=== PATIENT | male | born 1990 | race Caucasian/White ===

== ENCOUNTER 2022-01-13 00:53 | Emergency (ER) | payer OTHER ==
[2022-01-13 03:56] LABS: Amphetamine Screen,Urine Detected (NotDetected); Barbiturate Screen,Urine Not Detected (NotDetected); Benzodiazepines Screen,Urine Not Detected (NotDetected); Cocaine Screen,Urine Not Detected (NotDetected); Methadone Screen, Urine Not Detected (NotDetected); Opiate Screen,Urine Not Detected (NotDetected); Oxycodone Screen, Urine Not Detected (NotDetected); Phencyclidine Screen,Urine Not Detected (NotDetected); Tricyclic Antidepressant,Urine Not Detected (NotDetected); Urn Cannabinoid Scrn Not Detected (NotDetected)
[2022-01-13] MEDS ORDERED: LORazepam 1 MG TAB PO STA (05:27)
[2022-01-13] MEDS ORDERED: haloperidoL 5 MG TAB PO STA (05:27)
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
[2022-01-13 11:02] VITALS: BP 121/67; PULSE 78; RESP 18; TEMP 97.7
== END 2022-01-13 11:09 | disposition home or self-care (01) ==
LOC: EC 00:53
DX: F15.951 Other stimulant use, unspecified with stimulant-induced psychotic disorder with hallucinations (principal); I10 Essential (primary) hypertension; I25.10 Atherosclerotic heart disease of native coronary artery without angina pectoris; F17.200 Nicotine dependence, unspecified, uncomplicated; Z79.899 Other long term (current) drug therapy
CPT/HCPCS: 80306; 82075; 99284

== ENCOUNTER 2022-01-16 08:35 | Emergency (ER) | payer OTHER ==
[2022-01-16 08:59] VITALS: RESP 16
[2022-01-16] MEDS ORDERED: BACITRACIN OINT 1 EACH PACKET TOPICAL ONE (09:07)
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
[2022-01-16 13:46] LABS: Basophils % (A) 0 %; Eosinophils # (A) 0.1 k/uL (0-0.7); Eosinophils % (A) 1 %; HCT 46.2 % (39.0-53.0); HGB 15.7 gm/dL (13.0-17.5); Lymphocytes % (A) 19 %; MCH 31.1 pg (25.0-35.0); MCHC 33.9 g/dL (31.0-37.0); MCV 91.8 fL (80.0-100.0); Mean Platelet Volume 7.8; Monocytes # (A) 0.6 k/uL (0-1.0); Monocytes % (A) 5 %; Neutrophils # (A) 7.4 k/uL (1.3-7.7); Neutrophils % (A) 71 %; Platelet Count 328 k/uL (150-450); RBC 5.03 m/uL (4.30-5.90); RDW 13.1 % (11.5-15.5); WBC 10.4 k/uL (3.8-10.6)
[2022-01-16 14:01] LABS: ALT 26 U/L (4-49); AST 24 U/L (17-59); African American GFR (CKD) >90 (>60 ml/min/1.73 sqM); Albumin 5.1 g/dL (3.5-5.0); Alkaline Phosphatase 57 U/L (38-126); Anion Gap 9 mmol/L; Blood Urea Nitrogen 13 mg/dL (9-20); Carbon Dioxide 27 mmol/L (22-30); Chloride 104 mmol/L (98-107); Glucose 91 mg/dL (74-99); Non-African American GFR(CKD) >90 (>60 ml/min/1.73 sqM); Potassium 3.8 mmol/L (3.5-5.1); Sodium 140 mmol/L (137-145); Total Bilirubin 0.5 mg/dL (0.2-1.3); Total Protein 7.7 g/dL (6.3-8.2)
[2022-01-16] MEDS ORDERED: LORazepam 2 MG/ML INJ IM STA (14:19)
[2022-01-16 16:43] LABS: Appearance,Urine Clear (Clear); Bilirubin,Urine Negative (Negative); Blood,Urine Negative (Negative); Color,Urine Light Yellow; Glucose,Urine (UA) Negative (Negative); Ketones,Urine Negative (Negative); Leukocyte Esterase,Urine Negative (Negative); Nitrite,Urine Negative (Negative); PH, Urine 6.5 (5.0-8.0); Protein,Urine Negative (Negative); Specific Gravity,Urine 1.011 (1.001-1.035); Urobilinogen,Urine <2.0 mg/dL (<2.0)
[2022-01-16 17:04] LABS: Amphetamine Screen,Urine Detected (NotDetected); Barbiturate Screen,Urine Not Detected (NotDetected); Benzodiazepines Screen,Urine Not Detected (NotDetected); Cocaine Screen,Urine Not Detected (NotDetected); Methadone Screen, Urine Not Detected (NotDetected); Opiate Screen,Urine Not Detected (NotDetected); Oxycodone Screen, Urine Not Detected (NotDetected); Phencyclidine Screen,Urine Not Detected (NotDetected); Tricyclic Antidepressant,Urine Not Detected (NotDetected); Urn Cannabinoid Scrn Not Detected (NotDetected)
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
[2022-01-16 23:03] VITALS: BP 143/87; PULSE 82; TEMP 98.9
== END 2022-01-16 22:10 | disposition home or self-care (01) ==
LOC: EC 08:35
DX: F15.959 Other stimulant use, unspecified with stimulant-induced psychotic disorder, unspecified (principal); T20.17XA Burn of first degree of neck, initial encounter; Z20.822 Contact with and (suspected) exposure to COVID-19; I10 Essential (primary) hypertension; I25.10 Atherosclerotic heart disease of native coronary artery without angina pectoris; F41.9 Anxiety disorder, unspecified; F17.200 Nicotine dependence, unspecified, uncomplicated; X08.8XXA Exposure to other specified smoke, fire and flames, initial encounter
CPT/HCPCS: 82075; 36415; 80053; 85025; 81003; 80306; 87635; 99285; 96372; J2060

== ENCOUNTER 2022-01-17 11:34 | Inpatient (IN) | payer MEDICAID, OTHER ==
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
[2022-01-17 14:41] LABS: Amphetamine Screen,Urine Detected (NotDetected); Barbiturate Screen,Urine Not Detected (NotDetected); Benzodiazepines Screen,Urine Not Detected (NotDetected); Cocaine Screen,Urine Not Detected (NotDetected); Methadone Screen, Urine Not Detected (NotDetected); Opiate Screen,Urine Not Detected (NotDetected); Oxycodone Screen, Urine Not Detected (NotDetected); Phencyclidine Screen,Urine Not Detected (NotDetected); Tricyclic Antidepressant,Urine Not Detected (NotDetected); Urn Cannabinoid Scrn Not Detected (NotDetected)
[2022-01-17] MEDS ORDERED: MAGNESIUM HYDROXIDE 2,400 MG/10 ML CUP PO PRN (18:34)
[2022-01-17] MEDS ORDERED: LORazepam 1 MG TAB PO PRN (18:34)
[2022-01-17] MEDS ORDERED: MAG HYDROX/AL HYDROX/SIMETH 30 ML CUP PO PRN (18:34)
[2022-01-17] MEDS ORDERED: LORazepam 2 MG/ML INJ IM PRN (18:36)
[2022-01-17] MEDS ORDERED: haloperidoL 5 MG TAB PO PRN (18:36)
[2022-01-17 19:26] VITALS: RESP 16
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
[2022-01-18] MEDS: BACITRACIN OINT 1 EACH PACKET TOPICAL SCH ×4 (01:57→21:35)
[2022-01-18] MEDS: HALOPERIDOL LACTATE 5 MG/ML 1 ML VIAL IM PRN ×2 (03:27→04:35)
[2022-01-18] MEDS ORDERED: HALOPERIDOL LACTATE 5 MG/ML 1 ML VIAL IM PRN (04:18)
[2022-01-18 08:54] LABS: ALT 38 U/L (4-49); AST 56 U/L (17-59); African American GFR (CKD) >90 (>60 ml/min/1.73 sqM); Albumin 5.1 g/dL (3.5-5.0); Alkaline Phosphatase 63 U/L (38-126); Anion Gap 12 mmol/L; Blood Urea Nitrogen 17 mg/dL (9-20); Calcium 9.9 mg/dL (8.4-10.2); Carbon Dioxide 20 mmol/L (22-30); Chloride 107 mmol/L (98-107); Glucose 80 mg/dL (74-99); Non-African American GFR(CKD) >90 (>60 ml/min/1.73 sqM); Potassium 4.7 mmol/L (3.5-5.1); Sodium 139 mmol/L (137-145); Total Bilirubin 1.1 mg/dL (0.2-1.3)
[2022-01-18 09:02] LABS: Basophils # (A) 0.1 k/uL (0-0.2); Basophils % (A) 1 %; Eosinophils # (A) 0.3 k/uL (0-0.7); Eosinophils % (A) 3 %; HCT 54.3 % (39.0-53.0); HGB 18.1 gm/dL (13.0-17.5); Lymphocytes # (A) 2.7 k/uL (1.0-4.8); Lymphocytes % (A) 25 %; MCH 31.2 pg (25.0-35.0); MCHC 33.2 g/dL (31.0-37.0); MCV 93.9 fL (80.0-100.0); Mean Platelet Volume 7.5; Monocytes # (A) 0.5 k/uL (0-1.0); Monocytes % (A) 5 %; Neutrophils # (A) 6.6 k/uL (1.3-7.7); Neutrophils % (A) 63 %; Platelet Count 292 k/uL (150-450); RBC 5.79 m/uL (4.30-5.90); RDW 13.1 % (11.5-15.5); WBC 10.5 k/uL (3.8-10.6)
[2022-01-18] MEDS: NICOTINE 14MG/24HR PATCH TRANSDERM SCH (09:10)
[2022-01-18] MEDS ORDERED: diphenhydrAMINE 50 MG CAP PO PRN (13:53)
[2022-01-18] MEDS ORDERED: diphenhydrAMINE 50 MG/ML 1 ML VIAL IM PRN (13:53)
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
[2022-01-18 18:31] LABS: Chol/HDL Ratio 3.58 Ratio; VLDL Calculation 13.74 mg/dL (5.00-40.00)
[2022-01-18] MEDS: risperiDONE 1 MG TAB PO SCH (21:35)
[2022-01-19] MEDS: NICOTINE 14MG/24HR PATCH TRANSDERM SCH (09:04)
[2022-01-19] MEDS: BACITRACIN OINT 1 EACH PACKET TOPICAL SCH ×3 (09:04→23:53)
[2022-01-19] MEDS: risperiDONE 1 MG TAB PO SCH (09:04)
[2022-01-19] MEDS: ACETAMINOPHEN TAB 325 MG TAB PO PRN (09:05)
--- NOTE | 2022-01-19 13:17 | P.PN ---
Progress Note - Text Progress Note Date: 01/19/22 Interval History: Patient was seen resting in bed and was directable and agreeable to speak with securities underwriter in his room. She has been in adherent with his medications and is currently not reporting any significant side effects. He is however unable to recall the events leading up to this hospitalization. He is alert and oriented to person only. He believes that he was in some sort of inpatient rehabilitation for substance use in the hospital. However, the patient states that he does not use any methamphetamines or amphetamines despite testing positive on admission. He is currently denying any suicidal or homicidal ideation, intention, and/or plan. He denies any auditory or visual hallucinations. He reports no paranoia or other delusions. Patient expresses that he just feels tired like to sleep and he then terminates the interview. Mental Status Exam: General Appearance: Patient appears to be stated age is alert, directable, and intermittently. Behavior: Patient is calmly lying down in bed without any agitated behavior. Speech: Patient's speech is fluent and nonpressured. Mood/Affect: Mood is "alright," affect is irritable. Suicidality/Homicidality: Patient denies having any suicidal or homicidal ideation intent or plan. Perceptions: Patient denies any visual hallucinations and denies any auditory hallucinations Though content/process: There is no evidence of any delusional thought content and thought process is linear and goal-directed. Memory and concentration: AOX3, grossly intact for the purposes of this session Judgment and insight: Improving mildly Vital Signs Temp 97.8 F 01/17/22 19:23 Pulse 104 H 01/17/22 19:23 Resp 16 01/17/22 19:23 BP 108/73 01/17/22 19:23 Pulse Ox 97 01/17/22 19:23 Laboratory Results - Last 24 Hours 01/18/22 08:10 Triglycerides 68.70 Cholesterol 205.00 H LDL Cholesterol, Calc 134.0 H VLDL Cholesterol, Calc 13.74 HDL Cholesterol 57.30 Cholesterol/HDL Ratio 3.58 Assessment Acute psychosis Methamphetamine use disorder Plan: -Patient continues to meet criteria for inpatient psychiatric admission for symptom stabilization and safety. The patient has been petitioned and certified. -Medications: Increase Risperdal to 2 mg by mouth twice a day for acute psychosis -When necessary Ativan and Haldol for agitation/aggression. -NRT - nicotine patch -SW on board for discharge planning. Encouraged the patient to participate in milieu.
[2022-01-20] MEDS: risperiDONE 1 MG TAB PO SCH ×3 (02:11→21:34)
[2022-01-20] MEDS: ACETAMINOPHEN TAB 325 MG TAB PO PRN (09:20)
[2022-01-20] MEDS: BACITRACIN OINT 1 EACH PACKET TOPICAL SCH ×3 (09:20→21:35)
[2022-01-20] MEDS: NICOTINE 14MG/24HR PATCH TRANSDERM SCH (09:57)
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
[2022-01-21] MEDS: risperiDONE 1 MG TAB PO SCH (08:23)
[2022-01-21] MEDS: NICOTINE 14MG/24HR PATCH TRANSDERM SCH (08:23)
[2022-01-21] MEDS: BACITRACIN OINT 1 EACH PACKET TOPICAL SCH (08:23)
[2022-01-21 08:27] VITALS: BP 111/76; PULSE 90; TEMP 96.9
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
== END 2022-01-21 12:13 | disposition home or self-care (01) | DRG 885 ==
LOC: EC 11:34 → 3MHU 17:03
PROVIDERS: ADMIT Psychiatry & Neurology Psychiatry; ATTEND Psychiatry & Neurology Psychiatry
DX: F23 Brief psychotic disorder (principal); F15.10 Other stimulant abuse, uncomplicated; F17.200 Nicotine dependence, unspecified, uncomplicated; F41.9 Anxiety disorder, unspecified; I10 Essential (primary) hypertension; Z20.822 Contact with and (suspected) exposure to COVID-19; I25.10 Atherosclerotic heart disease of native coronary artery without angina pectoris; T20.07XA Burn of unspecified degree of neck, initial encounter; X58.XXXA Exposure to other specified factors, initial encounter; Z79.899 Other long term (current) drug therapy
CPT/HCPCS: 80053; 80061; 80306; 82075; 83036; 84443; 85025; 87635; 99285

== ENCOUNTER 2025-06-09 14:58 | Emergency (ER) | payer OTHER ==
[2025-06-09 15:06] VITALS: RESP 18; TEMP 97.8
--- NOTE | 2025-06-09 15:38 | ED ---
General Adult HPI - General Chief complaint: Abdominal Pain Stated complaint: Urogenital Time Seen by Provider: 06/09/25 15:15 Source: patient Mode of arrival: ambulatory Limitations: no limitations - History of Present Illness Initial comments: This is a 35-year-old male with history of umbilical hernia, CAD and hypertension presenting for pain in groin x 6 days. Patient endorses sudden onset pain in his left testicle. Denies recent trauma or known cause for pain. Denies fever, chills, swelling, dysuria, hematuria, urethral discharge, oliguria. Onset/Timin -: days(s) Location: genitals Radiation: periumbilical Severity scale (1-10): 5 Consistency: intermittent Associated Symptoms: denies other symptoms - Related Data Previous Rx's Medication Instructions Recorded Ibuprofen [Motrin] 800 mg PO Q8HR PRN #30 tab 06/09/25 Allergies Allergy/AdvReac Type Severity Reaction Status Date / Time No Known Allergies Allergy Verified 06/09/25 15:48 Review of Systems ROS Statement: Those systems with pertinent positive or pertinent negative responses have been documented in the HPI. ROS Other: All systems not noted in ROS Statement are negative. Past Medical History Past Medical History: Coronary Artery Disease (CAD), Hypertension History of Any Multi-Drug Resistant Organisms: None Reported Past Surgical History: No Surgical Hx Reported Past Psychological History: Anxiety Smoking Status: Current every day smoker Past Alcohol Use History: Occasional Past Drug Use History: Methamphetamine General Exam Limitations: no limitations General appearance: alert, in no apparent distress Head exam: Present: atraumatic, normocephalic, normal inspection Eye exam: Present: normal appearance, PERRL, EOMI. Absent: scleral icterus, conjunctival injection, periorbital swelling ENT exam: Present: normal exam, mucous membranes moist Neck exam: Present: normal inspection. Absent: tenderness, meningismus, lymphadenopathy Respiratory exam: Present: normal lung sounds bilaterally. Absent: respiratory distress, wheezes, rales, rhonchi, stridor Cardiovascular Exam: Present: regular rate, normal rhythm, normal heart sounds. Absent: systolic murmur, diastolic murmur, rubs, gallop, clicks GI/Abdominal exam: Present: soft, normal bowel sounds. Absent: distended, tenderness, guarding, rebound, rigid exam: Present: testicular tenderness (Positive left inferior testicular TTP with possible palpable varicocele.), circumcision, other (Negative testicular edema, overlying scrotal erythema. Cremasteric reflex intact bilaterally). Absent: urethral discharge, scrotal swelling, vertical testicular lie Extremities exam: Present: normal inspection, full ROM, normal capillary refill. Absent: tenderness, pedal edema, joint swelling, calf tenderness Back exam: Present: normal inspection Neurological exam: Present: alert, oriented X3, CN II-XII intact Psychiatric exam: Present: normal affect, normal mood Skin exam: Present: warm, dry, intact, normal color. Absent: rash Course Vital Signs 06/09/25 06/09/25 06/09/25 15:01 16:00 17:03 Temperature 97.8 F 97.8 F 97.8 F Pulse Rate 107 H 101 H 97 Respiratory 18 18 18 Rate Blood Pressure 131/82 129/74 124/82 O2 Sat by Pulse 98 99 99 Oximetry Medical Decision Making - Medical Decision Making Was pt. sent in by a medical professional or institution (, PA, NURSE [employer] A[employer], urgent care, hospital, or shelter...) When possible be specific @ -No Did you speak to anyone other than the patient for history (EMS, parent, family, police, friend...)? What history was obtained from this source @ -No Did you review nursing and triage notes (agree or disagree)? Why? @ -I reviewed and agree with nursing and triage notes Were old charts reviewed (outside hosp., previous admission, EMS record, old EKG, old radiological studies, urgent care reports/EKG's, shelter records)? Report findings @ -No old charts were reviewed Differential Diagnosis (chest pain, altered mental status, abdominal pain women, abdominal pain men, vaginal bleeding, weakness, fever, dyspnea, syncope, headache, dizziness, GI bleed, back pain, seizure, CVA, palpatations, mental health, musculoskeletal)? @ -Differential Abdominal Pain Men: Appendicitis, cholecystitis, diverticulosis, ischemic bowel, pancreatitis, hepatitis, UTI, gastroenteritis, AAA, incarcerated hernia, bowel obstruction, constipation, inflammatory bowel, hepatitis, peptic ulcer disease, splenic infarction, perforated viscus, testicular torsion, this is not meant to be an all-inclusive list EKG interpreted by me (3pts min.). @ -Not done X-rays interpreted by me (1pt min.). @ -None done CT interpreted by me (1pt min.). @ -None done U/S interpreted by me (1pt. min.). @ -Scrotal ultrasound shows bilateral hydrocele with mild left-sided varicocele. No evidence of testicular torsion bilaterally. What testing was considered but not performed or refused? (CT, X-rays, U/S, labs)? Why? @ -None What meds were considered but not given or refused? Why? @ -None Did you discuss the management of the patient with other professionals (professionals i.e. DrTylor, PA, N[employer], lab, RT, psych nurse, social media sr strategy manager, procurement cost coordinator, teacher, strike warfare/missile systems officer, briefcase sewer)? Give summary @ -No Was smoking cessation discussed for >3mins.? @ -No Was critical care preformed (if so, how long)? @ -No Were there social determinants of health that impacted care today? How? (Homelessness, low income, unemployed, alcoholism, drug addiction, transportation, low edu. Level, literacy, decrease access to med. care, [facility], rehab)? @ -No Was there de-escalation of care discussed even if they declined (Discuss DNR or withdrawal of care, Hospice)? DNR status @ -No What co-morbidities impacted this encounter? (DM, HTN, Smoking, COPD, CAD, Cancer, CVA, ARF, Chemo, Hep., AIDS, mental health diagnosis, sleep apnea, morbid obesity)? @ -None Was patient admitted / discharged? Hospital course, mention meds given and route, prescriptions, significant lab abnormalities, going to OR and other pertinent info. @ -Patient provided p.o. Motrin 800 for pain. Scrotal ultrasound shows bilateral hydrocele with mild left-sided varicocele. No evidence of testicular torsion bilaterally. Advised supportive underwear and alternate Tylenol/Motrin every 4 hours for pain. Motrin sent to patient's pharmacy. Advised follow-up with urology/PCP regarding any ongoing scrotal pain. Return to ER if scrotal pain should continue to worsen. Discussed patient with Dr. Fajardo. Undiagnosed new problem with uncertain prognosis? @ -No Drug Therapy requiring intensive monitoring for toxicity (Heparin, Nitro, Insulin, Cardizem)? @ -No Were any procedures done? @ -No Diagnosis/symptom? @ -Varicocele, hydrocele Acute, or Chronic, or Acute on Chronic? @ -Acute Uncomplicated (without systemic symptoms) or Complicated (systemic symptoms)? @ -Uncomplicated Side effects of treatment? @ -No Exacerbation, Progression, or Severe Exacerbation? @ -No Poses a threat to life or bodily function? How? (Chest pain, [place], [place], pneumonia, PE, COPD, DKA, ARF, appy, cholecystitis, CVA, Diverticulitis, Homicidal, Suicidal, threat to staff... and all critical care pts) @ -No Disposition Clinical Impression: Left varicocele Disposition: HOME SELF-CARE Condition: Good Instructions (If sedation given, give patient instructions): Varicocele (ED), Testicle Pain (ED) Additional Instructions: Jockstrap/supportive underwear for pain. Alternate Tylenol/Motrin every 4 hours for pain. Follow-up with PCP/urology for or any ongoing pain. Return to ER if pain should worsen. Prescriptions: Ibuprofen [Motrin] 800 mg PO Q8HR PRN #30 tab PRN Reason: Pain Is patient prescribed a controlled substance at d/c from ED?: No Referrals: None,Stated [Primary Care Provider] - 1-2 days Andrea Elam MD [STAFF PHYSICIAN] - 1-2 days Time of Disposition: 16:43
[2025-06-09] MEDS: IBUPROFEN 800 MG TAB PO STA (15:40)
--- NOTE | 2025-06-09 16:25 | US ---
EXAMINATION TYPE: US scrotum with doppler. DATE OF EXAM: 06/09/2025 COMPARISON: NONE CLINICAL INDICATION: Male, 34 years old with history of L testicular TTP/pain, especially inferior as pect; Lt testicular pain since Monday, no swelling/trauma TECHNIQUE: Grayscale, color Doppler and spectral Doppler imaging of the scrotum. FINDINGS: EXAM MEASUREMENTS: TESTICLES: Right Testicle: 4.7x2.6x3.4cm Left Testicle: 4.4x2.0x3.5cm EPIDIDYMIS HEAD: Right Epididymis: 0.6x1.1x0.8cm ?cyst: 0.3x0.3x0.3cm Left Epididymis: 0.5x0.9x0.6cm ? cyst: 0.2x0.2x0.0.3cm Doppler performed to assess for testicular vascularity; good bilateral color flow and spectral wavefo ashleigh are seen. There is no evidence of testicular torsion. Presence of hydroceles: mild bilat Presence of varicoceles: ?mildly dilated Lt side IMPRESSION: No evidence for acute process. No evidence for intratesticular mass. Appropriate arterial and venous spectral waveforms to the testes. Small epididymal cysts [facility], Workstation: [facility], 06/09/2025 4:22 PM
[2025-06-09 17:04] VITALS: BP 124/82; PULSE 97
== END 2025-06-09 17:05 | disposition home or self-care (01) ==
LOC: EC 14:58
CPT/HCPCS: 76870; 93975; 99284